=== PATIENT | male | born 1985 | race Two or more races ===

== ENCOUNTER 2019-09-12 15:45 | Emergency (ER) | payer MEDICAID, OTHER ==
[~2019-09-12] VITALS: Ht 170.2 cm; Wt 83.9 kg
[2019-09-12 15:59] VITALS: BP 136/78
[2019-09-12] MEDS ORDERED: cefTRIAXone SOD 1,000 MG VL IM ONE (17:00)
[2019-09-12 17:20] LABS: Urine Amorphous Crystal FEW /hpf (None Seen); Urine Bacteria FEW /hpf (None Seen); Urine Blood 3+ /uL (Negative); Urine Mucus FEW (None Seen); Urine Specific Gravity 1.014 (1.001-1.035); Urine WBC 293 /hpf (0 - 3); Urine WBC Clumps PRESENT /hpf (None Seen)
== END 2019-09-12 17:40 | disposition home or self-care (01) ==
LOC: ER 15:45
DX: N39.0 Urinary tract infection, site not specified (principal); Z20.2 Contact with and (suspected) exposure to infections with a predominantly sexual mode of transmission
CPT/HCPCS: 81001; 96372; 99283; J0696

== ENCOUNTER 2021-03-31 13:30 | Inpatient (IN) | payer MEDICAID ==
[~2021-03-31] VITALS: Ht 170.2 cm; Wt 89.2 kg
[2021-03-31] MEDS ORDERED: ZINC SULFATE 220mg CAP or TAB PO ONE (13:45)
[2021-03-31] MEDS ORDERED: methylPREDNISolone SOD SUCC 125 MG/2 ML VL IV ONE (13:45)
[2021-03-31] MEDS ORDERED: ASCORBIC ACID 500 MG TAB PO ONE (13:45)
[2021-03-31] MEDS ORDERED: CHOLECALCIFEROL (VITD3) 2,000 UNIT CAP/TAB PO ONE (13:45)
[2021-03-31 14:49] LABS: Basophils # (auto) 0 10 ^3/uL (0-0.2); Eosinophils # (auto) 0 10 ^3/uL (0-0.8); Hematocrit 45.7 % (41.0-53.0); Hemoglobin 15.9 g/dL (13.5-17.5); Lymphocytes # (auto) 0.5 10 ^3/uL (0.4-5.4); Lymphocytes % (auto) 5.5 % (10.0-50.0); Mean Corpuscular Hemoglobin 31.7 pg (28.0-32.0); Mean Corpuscular Hgb Conc. 34.8 g/dL (32.0-36.0); Mean Corpuscular Volume 91.1 fL (80.0-100.0); Monocytes # (auto) 0.5 10 ^3/uL (0-1.3); Monocytes % (auto) 5.7 % (0.0-12.0); Neutrophils # (auto) 8.3 10 ^3/uL (1.6-8.6); Neutrophils % (auto) 88.8 % (37.0-80.0); Nucleated Red Blood Cells % 0.4 %; Red Blood Cells 5.02 10^6/uL (4.5-5.90); Red Cell Distribution Width 12.1 % (11.8-14.3); White Blood Cell 9.4 10^3/uL (4.4-10.8)
[2021-03-31 15:05] LABS: Albumin 3.2 g/dL (3.4-5.0); BUN/Creatinine Ratio 16.8; Calcium 8.8 mg/dL (8.5-10.1); Potassium 4.1 mmol/L (3.5-5.1)
[2021-03-31 15:14] LABS: Bilirubin, Total 1.4 mg/dL (0.2-1.0); CRP High Sensitivity 12.9 mg/dL (< 0.3); Total Protein 8.7 g/dL (6.4-8.2)
[2021-03-31] MEDS ORDERED: ACETAMINOPHEN 325 MG TAB PO ONE (17:00)
[2021-03-31] MEDS ORDERED: DOCUSATE SOD 100 MG CAP PO PRN (22:15)
[2021-03-31] MEDS ORDERED: ACETAMINOPHEN 500 MG TAB PO PRN (22:15)
[2021-03-31] MEDS ORDERED: ALBUTEROL SULF HFA 90MCG INH 200DOSE IN PRN (22:15)
[2021-03-31] MEDS ORDERED: ONDANSETRON HCL 4 MG/2 ML VIAL IV PRN (22:15)
[2021-03-31] MEDS ORDERED: HYDROcodone-ACET 5/325MG TAB PO PRN (22:15)
[2021-04-01] MEDS ORDERED: NITROGLYCERIN 0.4 MG SL TAB SL PRN (00:15)
[2021-04-01] MEDS ORDERED: MORPHINE SULFATE INJECTION 2 MG/ML SYRG IV PRN (00:15)
[2021-04-01 01:15] VITALS: BP 130/75
[2021-04-01 05:00] VITALS: BP 115/70
[2021-04-01] MEDS: SODIUM CHLOR 0.9% PF (SALINE LOCK) 10ML VIAL/SYR IV SCH ×3 (06:51→21:22)
[2021-04-01 09:00] VITALS: BP 113/69
[2021-04-01] MEDS: MULTIPLE VITAMIN TAB PO SCH (09:53)
[2021-04-01] MEDS: ZINC SULFATE 220mg CAP or TAB PO SCH (09:53)
[2021-04-01] MEDS: DexAMETHasone SOD PHOS 10MG/1ML VIAL INJ IV SCH (09:53)
[2021-04-01] MEDS: FAMOTIDINE (10MG/ML) 2ML VL IV SCH ×2 (09:53→21:28)
[2021-04-01] MEDS: cefTRIAXone 1GM/50ML D5W 50 ML IV SCH (09:53)
[2021-04-01] MEDS: ASCORBIC ACID 1,000 MG TAB PO SCH (09:54)
[2021-04-01] MEDS: CHOLECALCIFEROL (VITD3) 2,000 UNIT CAP/TAB PO SCH (09:54)
[2021-04-01] MEDS: ENOXAPARIN SOD 40 MG/0.4 ML SYRINGE SC SCH ×2 (09:55→21:28)
[2021-04-01] MEDS ORDERED: BUDESONIDE (INHALATION) 180 MCG IH IN SCH (10:00)
[2021-04-01 13:00] VITALS: BP 117/47
[2021-04-01] MEDS ORDERED: IOHEXOL 350 MG/ML 100ML IJ ONE (13:26)
[2021-04-01] MEDS: DOXYCYCLINE 100MG/250ML 250 ML IV SCH ×2 (14:53→21:29)
[2021-04-01 17:00] VITALS: BP 118/80
[2021-04-01 22:00] VITALS: BP 128/69
[2021-04-02 05:00] VITALS: BP 105/68
[2021-04-02] MEDS: SODIUM CHLOR 0.9% PF (SALINE LOCK) 10ML VIAL/SYR IV SCH ×3 (06:16→21:33)
[2021-04-02] MEDS: cefTRIAXone 1GM/50ML D5W 50 ML IV SCH (09:01)
[2021-04-02 09:45] VITALS: BP 112/61
[2021-04-02] MEDS: DOXYCYCLINE 100MG/250ML 250 ML IV SCH ×2 (11:28→21:33)
[2021-04-02] MEDS: FAMOTIDINE (10MG/ML) 2ML VL IV SCH ×2 (11:28→21:34)
[2021-04-02] MEDS: DexAMETHasone SOD PHOS 10MG/1ML VIAL INJ IV SCH (11:28)
[2021-04-02] MEDS: ENOXAPARIN SOD 40 MG/0.4 ML SYRINGE SC SCH ×2 (11:29→21:34)
[2021-04-02] MEDS: ZINC SULFATE 220mg CAP or TAB PO SCH (11:29)
[2021-04-02] MEDS: MULTIPLE VITAMIN TAB PO SCH (11:29)
[2021-04-02] MEDS: CHOLECALCIFEROL (VITD3) 2,000 UNIT CAP/TAB PO SCH (11:29)
[2021-04-02] MEDS: ASCORBIC ACID 1,000 MG TAB PO SCH (11:29)
[2021-04-02 13:00] VITALS: BP 129/73
[2021-04-02 17:00] VITALS: BP 124/69
[2021-04-02 22:00] VITALS: BP 136/76
[2021-04-03 05:00] VITALS: BP 114/69
[2021-04-03] MEDS: SODIUM CHLOR 0.9% PF (SALINE LOCK) 10ML VIAL/SYR IV SCH ×2 (06:18→14:00)
[2021-04-03 08:30] VITALS: BP 107/70
[2021-04-03] MEDS: cefTRIAXone 1GM/50ML D5W 50 ML IV SCH (09:22)
[2021-04-03] MEDS: FAMOTIDINE (10MG/ML) 2ML VL IV SCH (09:23)
[2021-04-03] MEDS: MULTIPLE VITAMIN TAB PO SCH (09:23)
[2021-04-03] MEDS: CHOLECALCIFEROL (VITD3) 2,000 UNIT CAP/TAB PO SCH (09:23)
[2021-04-03] MEDS: ZINC SULFATE 220mg CAP or TAB PO SCH (09:24)
[2021-04-03] MEDS: DexAMETHasone SOD PHOS 10MG/1ML VIAL INJ IV SCH (09:24)
[2021-04-03] MEDS: ASCORBIC ACID 1,000 MG TAB PO SCH (09:24)
[2021-04-03] MEDS: DOXYCYCLINE 100MG/250ML 250 ML IV SCH (09:25)
[2021-04-03] MEDS: ENOXAPARIN SOD 40 MG/0.4 ML SYRINGE SC SCH (09:26)
[2021-04-03 10:45] VITALS: BP 107/70
[2021-04-03 12:30] VITALS: BP 101/65
== END 2021-04-03 14:55 | disposition home or self-care (01) | DRG 137 ==
LOC: ER 13:30 → OVERFLOW 04-01 00:01 → ER 04-01 01:06 → EAST 04-01 01:43 → TELE-EAST 04-01 05:44 → EAST 04-03 08:19
PROVIDERS: ADMIT Nurse Practitioner Family; ATTEND Family Medicine
DX: U07.1 COVID-19 (principal); J96.01 Acute respiratory failure with hypoxia; J12.82 Pneumonia due to coronavirus disease 2019; E88.09 Other disorders of plasma-protein metabolism, not elsewhere classified; E66.9 Obesity, unspecified; Z68.30 Body mass index [BMI] 30.0-30.9, adult; Z86.16 Personal history of COVID-19
CPT/HCPCS: 36415; 71045; 71275; 80053; 82728; 83605; 83735; 85025; 85379; 86141; 87040; 87081; 87426; 93005; 96374; 99291; G0378; J0696; J1100; J3490

== ENCOUNTER 2022-02-19 01:16 | Emergency (ER) | payer MEDICAID ==
[~2022-02-19] VITALS: Ht 170.2 cm; Wt 81.8 kg
[2022-02-19] MEDS ORDERED: ONDANSETRON HCL 4 MG/2 ML VIAL IV ONE (01:30)
[2022-02-19] MEDS ORDERED: PANTOPRAZOLE 40 MG/10 ML VIAL INJ IV ONE (01:30)
[2022-02-19] MEDS ORDERED: MORPHINE SULFATE 4 MG/ML SYR/VIAL IV ONE (01:30)
[2022-02-19 03:36] LABS: Albumin 4.3 g/dL (3.4-5.0); Calcium 8.9 mg/dL (8.5-10.1); Potassium 3.7 mmol/L (3.5-5.1)
[2022-02-19 03:41] LABS: BUN/Creatinine Ratio 18.6; Bilirubin, Total 1.5 mg/dL (0.2-1.0); Total Protein 7.9 g/dL (6.4-8.2)
[2022-02-19 03:46] LABS: Basophils # (auto) 0.1 10 ^3/uL (0-0.2); Basophils % (auto) 0.6 % (0.0-2.0); Eosinophils # (auto) 0.3 10 ^3/uL (0-0.8); Eosinophils % (auto) 2.9 % (0.0-7.0); Hematocrit 42.8 % (41.0-53.0); Lymphocytes # (auto) 1.6 10 ^3/uL (0.4-5.4); Lymphocytes % (auto) 15.6 % (10.0-50.0); Mean Corpuscular Hemoglobin 31.5 pg (28.0-32.0); Mean Corpuscular Hgb Conc. 35.1 g/dL (32.0-36.0); Mean Corpuscular Volume 89.8 fL (80.0-100.0); Monocytes # (auto) 0.5 10 ^3/uL (0-1.3); Monocytes % (auto) 4.5 % (0.0-12.0); Neutrophils # (auto) 7.7 10 ^3/uL (1.6-8.6); Neutrophils % (auto) 76.4 % (37.0-80.0); Red Blood Cells 4.76 10^6/uL (4.5-5.90); Red Cell Distribution Width 12.2 % (11.8-14.3); White Blood Cell 10.1 10^3/uL (4.4-10.8)
[2022-02-19 04:38] LABS: INR 0.97 (0.9-1.15); Partial Thromboplastin Time 29.8 sec (24.6-33.4)
[2022-02-19 05:07] VITALS: BP 108/69
== END 2022-02-19 05:23 | disposition home or self-care (01) ==
LOC: ER 01:16
DX: K80.20 Calculus of gallbladder without cholecystitis without obstruction (principal)
CPT/HCPCS: 36415; 74176; 80053; 83690; 85025; 85610; 85730; 96374; 96375; 99284; C9113; J2270; J2405